=== PATIENT | female | born 1965 | race Caucasian/White ===

== ENCOUNTER → 2016-03-06 | Outpatient (CLI) | payer OTHER ==
--- NOTE | 2016-03-07 08:34 | XR ---
Left hip HISTORY: Left hip pain 2 views of the left hip No comparisons Bone mineralization, joint spaces and alignment are maintained. Question some hypertrophic change of the lateral aspect of the bony acetabulum. Correlate for femoral acetabular impingement. IMPRESSION: Possible femoral acetabular impingement, correlate. No fracture or dislocation.
== END | disposition home or self-care (01) ==
LOC: RADXRYALE 13:59
PROVIDERS: ATTEND Internal Medicine
DX: M25.552 Pain in left hip (principal)
CPT/HCPCS: 73502

== ENCOUNTER 2020-12-20 14:20 | Inpatient (IN) | payer OTHER ==
[2020-12-20] MEDS ORDERED: methylPREDNISolone SOD SUCCI 125 MG/2 ML VIAL IV STA (15:32)
[2020-12-20] MEDS ORDERED: SODIUM CHLORIDE 0.9% 1,000 ML IV STA (15:32)
[2020-12-20] MEDS ORDERED: KETOROLAC 15 MG/ML 1 ML VIAL IVP STA (15:33)
--- NOTE | 2020-12-20 15:38 | ED ---
General Adult HPI - General Source: patient, RN notes reviewed Mode of arrival: wheelchair Limitations: no limitations <Leslie Banerjee - Last Filed: 12/20/20 22:16> <Leesa Mei - Last Filed: 12/23/20 01:00 EDT> - General Chief complaint: Shortness of Breath Stated complaint: Covid+, KIM Time Seen by Provider: 12/20/20 15:11 - History of Present Illness Initial comments: 55-year-old female presents to the emergency department for evaluation of worsening shortness of breath. Patient states she was diagnosed with Covid yesterday, but symptoms began a few days ago. Patient complains of fever, dull headache, congested productive cough, and shortness of breath with activity. Patient states she took Tylenol and Motrin around 1:00 today for fever and headache. Patient states she has not been vaccinated because she "thought Covid was just a bad cold." Reports decreased appetite, a few episodes of diarrhea, and body aches as well. Patient denies chest pain, abdominal pain, hematuria, dysuria. (Leslie Banerjee) - Related Data Home Medications Medication Instructions Recorded Confirmed Citalopram Hydrobromide [CeleXA] 40 mg PO DAILY 12/20/20 12/20/20 Lisinopril-Hctz 10-12.5 mg 1 tab PO DAILY 12/20/20 12/20/20 [Zestoretic 10-12.5] Multivitamins, Thera [Multivitamin 1 tab PO DAILY 12/20/20 12/20/20 (formulary)] Allergies Allergy/AdvReac Type Severity Reaction Status Date / Time latex Allergy Itching Verified 12/20/20 16:15 Review of Systems ROS Other: All systems not noted in ROS Statement are negative. <Leslie Banerjee - Last Filed: 12/20/20 22:16> ROS Other: All systems not noted in ROS Statement are negative. <Leesa Mei - Last Filed: 12/23/20 01:00 EDT> ROS Statement: Those systems with pertinent positive or pertinent negative responses have been documented in the HPI. Past Medical History Past Medical History: No Reported History History of Any Multi-Drug Resistant Organisms: None Reported Past Surgical History: No Surgical Hx Reported Past Psychological History: No Psychological Hx Reported Smoking Status: Never smoker Past Alcohol Use History: None Reported Past Drug Use History: None Reported <Leslie Banerjee - Last Filed: 12/20/20 22:16> General Exam Limitations: no limitations (Well-developed, well-nourished female in no acute distress. Initial temperature 102.4, recheck 99.4, pulse 101, recheck 92, respirations 22, recheck 18, blood pressure 127/76, pulse 87% on room air, placed on 3 L nasal cannula improved to 92%.) General appearance: alert, in no apparent distress Eye exam: Present: normal appearance, PERRL, EOMI. Absent: scleral icterus, conjunctival injection, periorbital swelling ENT exam: Present: normal exam, normal oropharynx, mucous membranes moist Neck exam: Present: normal inspection, full ROM. Absent: tenderness, meningismus, lymphadenopathy Respiratory exam: Present: normal lung sounds bilaterally, other (Patient reports shortness of breath with activity though does not appear in any distress at rest.). Absent: respiratory distress, wheezes, rales, rhonchi, stridor Cardiovascular Exam: Present: regular rate, normal rhythm, normal heart sounds. Absent: systolic murmur, diastolic murmur, rubs, gallop, clicks GI/Abdominal exam: Present: soft, normal bowel sounds. Absent: distended, tenderness, guarding, rebound, rigid Neurological exam: Present: alert, oriented X3, CN II-XII intact Psychiatric exam: Present: normal affect, normal mood Skin exam: Present: warm, dry, intact, other (Facial flushing noted) <ErlinheribertoLeslie - Last Filed: 12/20/20 22:16> Course <ErlinjanetLeslie novoa - Last Filed: 12/20/20 22:16> Vital Signs 12/20/20 12/20/20 12/20/20 14:23 16:30 17:20 Temperature 102.4 F H Pulse Rate 101 H 85 75 Pulse Rate [ Pulse Oximetery ] Respiratory 22 18 18 Rate Blood Pressure 127/76 120/70 127/74 Blood Pressure [Left Arm] O2 Sat by Pulse 87 L 93 L 91 L Oximetry 12/20/20 12/20/20 12/20/20 20:30 22:59 23:00 Temperature Pulse Rate 88 84 Pulse Rate [ Pulse Oximetery ] Respiratory 18 20 Rate Blood Pressure 134/82 137/79 Blood Pressure [Left Arm] O2 Sat by Pulse 92 L 92 L 92 L Oximetry 12/21/20 12/21/20 12/21/20 00:00 05:00 08:59 Temperature 99.0 F Pulse Rate 79 Pulse Rate [ Pulse Oximetery ] Respiratory 22 Rate Blood Pressure 122/73 Blood Pressure [Left Arm] O2 Sat by Pulse 90 L 91 L Oximetry 12/21/20 12/21/20 12/21/20 09:01 09:04 09:29 Temperature 98.8 F Pulse Rate 93 90 Pulse Rate [ Pulse Oximetery ] Respiratory 22 20 18 Rate Blood Pressure 129/83 Blood Pressure [Left Arm] O2 Sat by Pulse 91 L 90 L Oximetry 12/21/20 12/21/20 12/21/20 14:00 15:44 16:00 Temperature Pulse Rate 91 Pulse Rate [ 105 H Pulse Oximetery ] Respiratory 20 22 Rate Blood Pressure 141/82 Blood Pressure 171/78 [Left Arm] O2 Sat by Pulse 93 L 93 L 89 L Oximetry - Reevaluation(s) Reevaluation #1: 12/20/20 17:40 Patient feeling improved and is tolerating ice chips. However, oxygen saturation remains in the low 90s on 3 L nasal cannula. (Leslie Banerjee) Medical Decision Making - Lab Data Result diagrams: 12/20/20 16:02 12/20/20 16:02 - EKG Data EKG shows normal: sinus rhythm Rate: normal - Radiology Data Radiology results: report reviewed, image reviewed <Leslie Banerjee - Last Filed: 12/20/20 22:16> - Lab Data Result diagrams: 12/21/20 07:15 12/21/20 07:15 <Leesa Mei - Last Filed: 12/23/20 01:00 EDT> - Medical Decision Making 55-year-old Covid positive female is evaluated for increasing dyspnea on exertion and hypoxia. Upon exam patient is resting comfortably in no distress. However, patient's room-air saturation is 87%, and improves to 90-94% with 3 L oxygen via nasal cannula. Patient is initially febrile with a temperature of 102.4 that responded well to antipyretics. Chest x-ray shows bilateral multifocal opacities consistent with COVID-19 infection. Inflammatory markers are elevated: LDH 1186 and CRP 22.4. Patient was given IV fluids, steroid, and albuterol inhaler. Admission discussed with patient and she is agreeable. This patient's care was reviewed with my attending Dr. Mei. Spoke with [facility] provider, DANIELA Peralta, who accepts this patient. (Leslie Banerjee) I was available for consultation in the emergency department. The history and physical exam were done by the midlevel provider. I was consulted for this patients care. I reviewed the case with the midlevel provider and based on their presentation of the patient, I agree with the assessment, medical decision making and plan of care as documented. Chart was dictated using [employer] dictation software. Attempts were made to correct any dictation errors however some typographical errors may persist. (Leesa Mei) - Lab Data Lab Results 12/20/20 12/20/20 12/20/20 Range/Units 16:02 16:02 16:02 WBC 11.4 H (3.8-10.6) k/uL RBC 4.88 (3.80-5.40) m/uL Hgb 14.9 (11.4-16.0) gm/dL Hct 42.1 (34.0-46.0) % MCV 86.4 (80.0-100.0) fL MCH 30.5 (25.0-35.0) pg MCHC 35.4 (31.0-37.0) g/dL RDW 13.0 (11.5-15.5) % Plt Count 193 (150-450) k/uL MPV 8.2 Neutrophils % (Manual) 30 % Lymphocytes % (Manual) 67 % Monocytes % (Manual) 3 % Other Cells % % Neutrophils # (Manual) 3.42 (1.3-7.7) k/uL Lymphocytes # (Manual) 7.64 H (1.0-4.8) k/uL Monocytes # (Manual) 0.34 (0-1.0) k/uL Nucleated RBCs 0 (0-0) /100 WBC Manual Slide Review Performed PT 9.7 (9.0-12.0) sec INR 0.9 (<1.2) APTT 26.0 (22.0-30.0) sec Sodium 134 L (137-145) mmol/L Potassium 4.1 (3.5-5.1) mmol/L Chloride 102 (98-107) mmol/L Carbon Dioxide 23 (22-30) mmol/L Anion Gap 9 mmol/L BUN 17 (7-17) mg/dL Creatinine 0.99 (0.52-1.04) mg/dL Est GFR (CKD-EPI)AfAm 74 (>60 ml/min/1.73 sqM) Est GFR (CKD-EPI)NonAf 64 (>60 ml/min/1.73 sqM) Glucose 127 H (74-99) mg/dL Plasma Lactic Acid Júnior (0.7-2.0) mmol/L Calcium 8.9 (8.4-10.2) mg/dL Magnesium 1.9 (1.6-2.3) mg/dL Ferritin 1544.0 H (10.0-291.0) ng/mL Total Bilirubin 0.4 (0.2-1.3) mg/dL AST 42 H (14-36) U/L ALT 32 (4-34) U/L Alkaline Phosphatase 100 (38-126) U/L Lactate Dehydrogenase 1186 H (313-618) U/L Troponin I (0.000-0.034) ng/mL C-Reactive Protein 22.4 H (<1.0) mg/dL Total Protein 6.4 (6.3-8.2) g/dL Albumin 3.6 (3.5-5.0) g/dL Procalcitonin (0.02-0.09) ng/mL Coronavirus (PCR) (Not Detectd) 12/20/20 12/20/20 12/20/20 Range/Units 16:02 16:02 16:02 WBC (3.8-10.6) k/uL RBC (3.80-5.40) m/uL Hgb (11.4-16.0) gm/dL Hct (34.0-46.0) % MCV (80.0-100.0) fL MCH (25.0-35.0) pg MCHC (31.0-37.0) g/dL RDW (11.5-15.5) % Plt Count (150-450) k/uL MPV Neutrophils % (Manual) % Lymphocytes % (Manual) % Monocytes % (Manual) % Other Cells % % Neutrophils # (Manual) (1.3-7.7) k/uL Lymphocytes # (Manual) (1.0-4.8) k/uL Monocytes # (Manual) (0-1.0) k/uL Nucleated RBCs (0-0) /100 WBC Manual Slide Review PT (9.0-12.0) sec INR (<1.2) APTT (22.0-30.0) sec Sodium (137-145) mmol/L Potassium (3.5-5.1) mmol/L Chloride (98-107) mmol/L Carbon Dioxide (22-30) mmol/L Anion Gap mmol/L BUN (7-17) mg/dL Creatinine (0.52-1.04) mg/dL Est GFR (CKD-EPI)AfAm (>60 ml/min/1.73 sqM) Est GFR (CKD-EPI)NonAf (>60 ml/min/1.73 sqM) Glucose (74-99) mg/dL Plasma Lactic Acid Júnior 0.9 (0.7-2.0) mmol/L Calcium (8.4-10.2) mg/dL Magnesium (1.6-2.3) mg/dL Ferritin (10.0-291.0) ng/mL Total Bilirubin (0.2-1.3) mg/dL AST (14-36) U/L ALT (4-34) U/L Alkaline Phosphatase (38-126) U/L Lactate Dehydrogenase (313-618) U/L Troponin I (0.000-0.034) ng/mL C-Reactive Protein (<1.0) mg/dL Total Protein (6.3-8.2) g/dL Albumin (3.5-5.0) g/dL Procalcitonin 0.62 H (0.02-0.09) ng/mL Coronavirus (PCR) Detected A (Not Detectd) 12/20/20 Range/Units 16:36 WBC (3.8-10.6) k/uL RBC (3.80-5.40) m/uL Hgb (11.4-16.0) gm/dL Hct (34.0-46.0) % MCV (80.0-100.0) fL MCH (25.0-35.0) pg MCHC (31.0-37.0) g/dL RDW (11.5-15.5) % Plt Count (150-450) k/uL MPV Neutrophils % (Manual) % Lymphocytes % (Manual) % Monocytes % (Manual) % Other Cells % % Neutrophils # (Manual) (1.3-7.7) k/uL Lymphocytes # (Manual) (1.0-4.8) k/uL Monocytes # (Manual) (0-1.0) k/uL Nucleated RBCs (0-0) /100 WBC Manual Slide Review PT (9.0-12.0) sec INR (<1.2) APTT (22.0-30.0) sec Sodium (137-145) mmol/L Potassium (3.5-5.1) mmol/L Chloride (98-107) mmol/L Carbon Dioxide (22-30) mmol/L Anion Gap mmol/L BUN (7-17) mg/dL Creatinine (0.52-1.04) mg/dL Est GFR (CKD-EPI)AfAm (>60 ml/min/1.73 sqM) Est GFR (CKD-EPI)NonAf (>60 ml/min/1.73 sqM) Glucose (74-99) mg/dL Plasma Lactic Acid Júnior (0.7-2.0) mmol/L Calcium (8.4-10.2) mg/dL Magnesium (1.6-2.3) mg/dL Ferritin (10.0-291.0) ng/mL Total Bilirubin (0.2-1.3) mg/dL AST (14-36) U/L ALT (4-34) U/L Alkaline Phosphatase (38-126) U/L Lactate Dehydrogenase (313-618) U/L Troponin I 0.026 (0.000-0.034) ng/mL C-Reactive Protein (<1.0) mg/dL Total Protein (6.3-8.2) g/dL Albumin (3.5-5.0) g/dL Procalcitonin (0.02-0.09) ng/mL Coronavirus (PCR) (Not Detectd) - EKG Data EKG Comments: EKG was obtained at 1627 and shows normal sinus rhythm. Ventricular rate 82, RI interval 158, QRS duration 68, QT/QTC 384/448. (Leslie Banerjee) - Radiology Data Chest x-ray was obtained. Report was reviewed in its entirety. Impression per Dr. Mares is bilateral multifocal opacities consistent with COVID-19 infection. (Leslie Banerjee) Disposition Decision Date: 12/20/20 Decision Time: 18:25 <Leslie Banerjee - Last Filed: 12/20/20 22:16> <Leesa Mei - Last Filed: 12/23/20 01:00 EDT> Clinical Impression: COVID-19, Hypoxia, Fever Disposition: ADMITTED IP TO THIS [facility] Condition: Serious
--- NOTE | 2020-12-20 16:16 | XR ---
EXAMINATION TYPE: XR chest 1V portable DATE OF EXAM: 12/20/2020 COMPARISON: NONE HISTORY: Shortness of breath and cough. TECHNIQUE: Single AP frontal upright view of the chest is obtained. FINDINGS: There are multifocal and confluent opacities bilaterally. The cardiac silhouette size is within normal limits. The osseous structures are intact. IMPRESSION: Bilateral multifocal opacities consistent with covid-19 infection.
[2020-12-20 16:26] LABS: HCT 42.1 % (34.0-46.0); HGB 14.9 gm/dL (11.4-16.0); MCH 30.5 pg (25.0-35.0); MCHC 35.4 g/dL (31.0-37.0); MCV 86.4 fL (80.0-100.0); Mean Platelet Volume 8.2; Platelet Count 193 k/uL (150-450); RBC 4.88 m/uL (3.80-5.40); WBC 11.4 k/uL (3.8-10.6)
[2020-12-20 16:27] LABS: INR 0.9 (<1.2); Prothrombin Time 9.7 sec (9.0-12.0)
[2020-12-20 16:34] LABS: Albumin 3.6 g/dL (3.5-5.0); Calcium 8.9 mg/dL (8.4-10.2); Magnesium 1.9 mg/dL (1.6-2.3); Potassium 4.1 mmol/L (3.5-5.1); Total Bilirubin 0.4 mg/dL (0.2-1.3); Total Protein 6.4 g/dL (6.3-8.2)
[2020-12-20 16:47] LABS: C Reactive Protein 22.4 mg/dL (<1.0)
[2020-12-20 17:43] LABS: Lymphocytes # (M) 7.64 k/uL (1.0-4.8); Monocytes # (M) 0.34 k/uL (0-1.0); Neutrophils # (M) 3.42 k/uL (1.3-7.7); Neutrophils % (M) 30 %; Nucleated Red Blood Cells 0 /100 WBC (0-0); Total Cells Counted 100
[2020-12-20] MEDS ORDERED: ACETAMINOPHEN TAB 325 MG TAB PO PRN (18:16)
[2020-12-20] MEDS ORDERED: IBUPROFEN 400 MG TAB PO PRN (18:16)
[2020-12-20] MEDS ORDERED: ONDANSETRON 4 MG/2 ML VIAL IVP PRN (18:16)
[2020-12-20] MEDS: ALBUTEROL HFA INHALER INHALATION PRN (20:22)
[2020-12-21] MEDS: SODIUM CHLORIDE 0.9% 1,000 ML IV SCH ×4 (07:12→22:40)
[2020-12-21 07:59] LABS: HCT 42.6 % (34.0-46.0); HGB 14.1 gm/dL (11.4-16.0); MCH 29.9 pg (25.0-35.0); MCHC 33.2 g/dL (31.0-37.0); MCV 90.1 fL (80.0-100.0); Platelet Count 206 k/uL (150-450); RBC 4.73 m/uL (3.80-5.40); RDW 12.7 % (11.5-15.5); WBC 14.4 k/uL (3.8-10.6)
[2020-12-21 08:16] LABS: African American GFR (CKD) >90 (>60 ml/min/1.73 sqM); Anion Gap 8 mmol/L; Blood Urea Nitrogen 21 mg/dL (7-17); Calcium 8.6 mg/dL (8.4-10.2); Carbon Dioxide 22 mmol/L (22-30); Chloride 107 mmol/L (98-107); Glucose 177 mg/dL (74-99); Non-African American GFR(CKD) 80 (>60 ml/min/1.73 sqM); Potassium 4.2 mmol/L (3.5-5.1); Sodium 137 mmol/L (137-145)
[2020-12-21] MEDS: ALBUTEROL HFA INHALER INHALATION PRN ×3 (08:59→20:36)
[2020-12-21] MEDS ORDERED: ASCORBIC ACID 500 MG TAB PO SCH (09:00)
[2020-12-21] MEDS: ASCORBIC ACID 500 MG TAB PO SCH (09:31)
[2020-12-21] MEDS: CHOLECALCIFEROL 25 MCG (1000 IU) TABLET PO SCH (09:32)
[2020-12-21] MEDS: DEXAMETHASONE SOD PHOSPHATE 10 MG/ML 1 ML VIAL IVP SCH (09:32)
[2020-12-21] MEDS: ZINC SULFATE 220 MG CAP PO SCH (09:32)
[2020-12-21] MEDS: CITALOPRAM HYDROBROMIDE 20 MG TAB PO SCH (09:32)
[2020-12-21] MEDS: ENOXAPARIN 40 MG/0.4 ML SYRINGE SQ SCH (09:33)
--- NOTE | 2020-12-21 10:26 | P.CNPUL ---
History of Present Illness Consult date: 12/21/20 Requesting physician: Janel Mead Reason for consult: dyspnea, cough, hypoxemia, pneumonia, abnormal CXR/CT Chief complaint: Shortness of breath. History of present illness: Pulmonary/critical care consult dated 12/21/2020. 55-year-old female, who presented to the emergency department on December 20, complaining of shortness of breath. The patient is apparently diagnoses having coronavirus infection, this past Thursday. She has been sick for about 9-10 days. Her complaints include shortness of breath, fever, cough, and headache. The patient has not been vaccinated against coronavirus. Currently, she not receiving any IV fluids. She is getting 5 L nasal cannula. She has a history of hypertension. White count 14.4, hemoglobin 14.1, hematocrit 42.6, platelet count 206,000. D-dimer is 0.69. PT INR and PTT are normal. Sodium 137, potassium 4.2, chlorides 107, CO2 22, anion gap 8, BUN 21, creatinine 0.83. C- reactive protein is 22.4. Pro-calcitonin level was 0.62. Chest x-rays consistent with diffuse bilateral infiltrates. Review of Systems REVIEW OF SYSTEMS: CONSTITUTIONAL: Fever. NEUROLOGIC: Headache. HEENT: [ Negative.] CARDIAC: [Negative.] PULMONARY: Shortness of breath, chest congestion, cough. GI: [Negative.] : [Negative.] RHEUMATOLOGIC: [ Negative.] IMMUNOLOGIC: [ Negative.] ENDOCRINE: [Negative. ] DERMATOLOGIC: [Negative.] Past Medical History Past Medical History: No Reported History History of Any Multi-Drug Resistant Organisms: None Reported Past Surgical History: No Surgical Hx Reported Past Psychological History: No Psychological Hx Reported Smoking Status: Never smoker Past Alcohol Use History: None Reported Past Drug Use History: None Reported Medications and Allergies Home Medications Medication Instructions Recorded Confirmed Type Citalopram Hydrobromide [CeleXA] 40 mg PO DAILY 12/20/20 12/20/20 History Lisinopril-Hctz 10-12.5 mg 1 tab PO DAILY 12/20/20 12/20/20 History [Zestoretic 10-12.5] Multivitamins, Thera [Multivitamin 1 tab PO DAILY 12/20/20 12/20/20 History (formulary)] Allergies Allergy/AdvReac Type Severity Reaction Status Date / Time latex Allergy Itching Verified 12/20/20 16:15 Physical Exam Osteopathic Statement: *. No significant issues noted on an osteopathic structural exam other than those noted in the History and Physical/Consult. Vitals: Vital Signs Temp Pulse Resp BP Pulse Ox 12/21/20 09:29 98.8 F 90 18 129/83 90 L 12/21/20 09:04 93 20 91 L 12/21/20 09:01 22 12/21/20 08:59 91 L 12/21/20 05:00 79 22 122/73 90 L 12/21/20 00:00 99.0 F 12/20/20 23:00 84 20 137/79 92 L 12/20/20 22:59 88 18 134/82 92 L 12/20/20 20:30 92 L 12/20/20 17:20 75 18 127/74 91 L 12/20/20 16:30 85 18 120/70 93 L 12/20/20 14:23 102.4 F H 101 H 22 127/76 87 L No acute distress, oriented 3. Currently on 5 L nasal cannula. No conversational dyspnea or use of accessory muscles. HEENT examination is grossly unremarkable. Neck supple. Full range of motion. No adenopathy thyromegaly or neck vein distention. Cardiovascular examination reveals regular rhythm rate. S1-S2 normal. No S3 or S4. No discernible murmur noted. Heart rate is 90 bpm. Lungs reveal coarse bilateral breath sounds. Diffuse coarse rhonchi noted. No wheezes or crackles. Breath sounds equal bilaterally. Abdomen soft bowel sounds are heard. No masses or tenderness. Extremities are intact. No cyanosis clubbing or edema. Skin is without rash or lesion. Neurologic examination is brief but nonfocal. Results - Laboratory Findings CBC and BMP: 12/21/20 07:15 12/21/20 07:15 PT/INR, D-dimer PT 9.7 sec (9.0-12.0) 12/20/20 16:02 INR 0.9 (<1.2) 12/20/20 16:02 D-Dimer 0.69 mg/L FEU (<0.60) H 12/21/20 07:15 Abnormal lab findings: Abnormal Labs 12/20/20 12/20/20 12/20/20 16:02 16:02 16:02 WBC 11.4 H Lymphocytes # (Manual) 7.64 H D-Dimer Sodium 134 L BUN Glucose 127 H AST 42 H Lactate Dehydrogenase 1186 H C-Reactive Protein 22.4 H Procalcitonin Coronavirus (PCR) Detected A 12/20/20 12/21/20 12/21/20 16:02 07:15 07:15 WBC 14.4 H Lymphocytes # (Manual) D-Dimer Sodium BUN 21 H Glucose 177 H AST Lactate Dehydrogenase C-Reactive Protein Procalcitonin 0.62 H Coronavirus (PCR) 12/21/20 07:15 WBC Lymphocytes # (Manual) D-Dimer 0.69 H Sodium BUN Glucose AST Lactate Dehydrogenase C-Reactive Protein Procalcitonin Coronavirus (PCR) - Diagnostic Findings Chest x-ray: image reviewed Assessment and Plan Assessment: Acute hypoxemic respiratory failure secondary to coronavirus associated pneum onia. History of hypertension. No prior history of coronavirus vaccination. Plan: Plan dated 12/21/2020. The patient is a candidate for an albuterol inhaler, vitamin C, vitamin D3, and zinc. In addition, the patient is a candidate for Decadron, 6 mg a day, and Lovenox 40 mg subcu daily. The patient is outside the window for REM. We will continue to follow make recommendations where appropriate. Prognosis is guarded. The patient is not vaccinated. Her only other medical history is hypertension. Hopefully, she turns around, and does not worsen in regards to her oxygenation. Time with Patient: Greater than 30
--- NOTE | 2020-12-21 11:46 | P.HPIM ---
History of Present Illness Patient is pleasant 55-year-old female came in with complaints of shortness of breath found to have COVID-19 infection. Patient to was the having symptoms of cough shortness of breath and fevers going on for about 9-10 days. Patient was diagnosed with COPD about 3 days ago. Patient was sent home and continued to get short of breath because of which patient came to Hospital patient is hypoxic on 5 L of oxygen. Patient is not vaccinated for COVID-19. Patient's d-dimer is 0.69. Patient is presently on Decadron and Lovenox. Patient does have leukocytosis. Patient the chest x-ray showing significant bilateral infiltrates. Patient had fever of 102 last night REVIEW OF SYSTEMS: CONSTITUTIONAL: As mentioned in HPI HEENT: No recent visual problems or hearing problems. Denied any sore throat. CARDIOVASCULAR: No chest pain, orthopnea, PND, no palpitations, no syncope. PULMONARY: no hemoptysis. GASTROINTESTINAL: No diarrhea, no nausea, no vomiting, no abdominal pain. NEUROLOGICAL: No headaches, no weakness, no numbness. HEMATOLOGICAL: Denies any bleeding or petechiae. GENITOURINARY: Denies any burning micturition, frequency, or urgency. MUSCULOSKELETAL/RHEUMATOLOGICAL: Denies any joint pain, swelling, or any muscle pain. ENDOCRINE: Denies any polyuria or polydipsia. The rest of the 14-point review of systems is negative. PHYSICAL EXAMINATION: GENERAL: The patient is alert and oriented x3, not in any acute distress. Well developed, well nourished. HEENT: Pupils are round and equally reacting to light. EOMI. No scleral icterus. No conjunctival pallor. Normocephalic, atraumatic. No pharyngeal erythema. No thyromegaly. CARDIOVASCULAR: S1 and S2 present. No murmurs, rubs, or gallops. PULMONARY: Chest is clear to auscultation, no wheezing or crackles. ABDOMEN: Soft, nontender, nondistended, normoactive bowel sounds. No palpable organomegaly. MUSCULOSKELETAL: No joint swelling or deformity. EXTREMITIES: No cyanosis, clubbing, or pedal edema. NEUROLOGICAL: Gross neurological examination did not reveal any focal deficits. SKIN: No rashes. Assessment and plan -Acute hypoxic respiratory failure secondary to COVID-19 pneumonia: Patient will be continued on code vitamins, Lovenox, Decadron along with Pepcid. Mildly elevated d-dimer -Hypertension -Leukocytosis secondary to sepsis from COVID-19 infection DVT prophylaxis: Lovenox Past Medical History Past Medical History: No Reported History History of Any Multi-Drug Resistant Organisms: None Reported Past Surgical History: No Surgical Hx Reported Past Psychological History: No Psychological Hx Reported Smoking Status: Never smoker Past Alcohol Use History: None Reported Past Drug Use History: None Reported Medications and Allergies Home Medications Medication Instructions Recorded Confirmed Type Citalopram Hydrobromide [CeleXA] 40 mg PO DAILY 12/20/20 12/20/20 History Lisinopril-Hctz 10-12.5 mg 1 tab PO DAILY 12/20/20 12/20/20 History [Zestoretic 10-12.5] Multivitamins, Thera [Multivitamin 1 tab PO DAILY 12/20/20 12/20/20 History (formulary)] Allergies Allergy/AdvReac Type Severity Reaction Status Date / Time latex Allergy Itching Verified 12/20/20 16:15 Physical Exam Vitals: Vital Signs Temp Pulse Resp BP Pulse Ox 12/21/20 09:29 98.8 F 90 18 129/83 90 L 12/21/20 09:04 93 20 91 L 12/21/20 09:01 22 12/21/20 08:59 91 L 12/21/20 05:00 79 22 122/73 90 L 12/21/20 00:00 99.0 F 12/20/20 23:00 84 20 137/79 92 L 12/20/20 22:59 88 18 134/82 92 L 12/20/20 20:30 92 L 12/20/20 17:20 75 18 127/74 91 L 12/20/20 16:30 85 18 120/70 93 L 12/20/20 14:23 102.4 F H 101 H 22 127/76 87 L Results CBC & Chem 7: 12/21/20 07:15 12/21/20 07:15 Labs: Abnormal Lab Results - Last 24 Hours (Table) 12/20/20 12/20/20 12/20/20 Range/Units 16:02 16:02 16:02 WBC 11.4 H (3.8-10.6) k/uL Lymphocytes # (Manual) 7.64 H (1.0-4.8) k/uL D-Dimer (<0.60) mg/L FEU Sodium 134 L (137-145) mmol/L BUN (7-17) mg/dL Glucose 127 H (74-99) mg/dL AST 42 H (14-36) U/L Lactate Dehydrogenase 1186 H (313-618) U/L C-Reactive Protein 22.4 H (<1.0) mg/dL Procalcitonin (0.02-0.09) ng/mL Coronavirus (PCR) Detected A (Not Detectd) 12/20/20 12/21/20 12/21/20 Range/Units 16:02 07:15 07:15 WBC 14.4 H (3.8-10.6) k/uL Lymphocytes # (Manual) (1.0-4.8) k/uL D-Dimer (<0.60) mg/L FEU Sodium (137-145) mmol/L BUN 21 H (7-17) mg/dL Glucose 177 H (74-99) mg/dL AST (14-36) U/L Lactate Dehydrogenase (313-618) U/L C-Reactive Protein (<1.0) mg/dL Procalcitonin 0.62 H (0.02-0.09) ng/mL Coronavirus (PCR) (Not Detectd) 12/21/20 Range/Units 07:15 WBC (3.8-10.6) k/uL Lymphocytes # (Manual) (1.0-4.8) k/uL D-Dimer 0.69 H (<0.60) mg/L FEU Sodium (137-145) mmol/L BUN (7-17) mg/dL Glucose (74-99) mg/dL AST (14-36) U/L Lactate Dehydrogenase (313-618) U/L C-Reactive Protein (<1.0) mg/dL Procalcitonin (0.02-0.09) ng/mL Coronavirus (PCR) (Not Detectd)
[2020-12-21] MEDS: FAMOTIDINE 20 MG TAB PO SCH ×2 (13:33→20:15)
[2020-12-21 15:01] LABS: Band Neutrophils % 2 %; Lymphocytes # (M) 8.78 k/uL (1.0-4.8); Monocytes # (M) 0.58 k/uL (0-1.0); Neutrophils % (M) 34 %; Nucleated Red Blood Cells 0 /100 WBC (0-0); Total Cells Counted 200
[2020-12-21] MEDS ORDERED: guaiFENesin-DM 100-10MG/5ML 10 ML CUP PO PRN (19:00)
[2020-12-21] MEDS ORDERED: guaiFENesin-DM 100-10MG/5ML 10 ML CUP PO ONE (19:15)
[2020-12-21 20:07] LABS: Glucose,Whole Blood 111 mg/dL (75-99)
[2020-12-22] MEDS ORDERED: FUROSEMIDE 10 MG/ML 4 ML VIAL ONE (05:09)
--- NOTE | 2020-12-22 05:38 | XR ---
EXAMINATION TYPE: XR chest 1V DATE OF EXAM: 12/22/2020 COMPARISON: 12/20/2020 HISTORY: Short of breath TECHNIQUE: Single view FINDINGS: There is diffuse pulmonary airspace edema. There are chest leads. Heart size difficult to e valuate. Bony thorax is intact. IMPRESSION: There is moderate pulmonary edema which is worse than last exam.
[2020-12-22 07:00] LABS: Glucose,Whole Blood 129 mg/dL (75-99)
[2020-12-22] MEDS: ALBUTEROL HFA INHALER INHALATION PRN (08:26)
[2020-12-22] MEDS: ASCORBIC ACID 500 MG TAB PO SCH (09:03)
[2020-12-22] MEDS: ENOXAPARIN 40 MG/0.4 ML SYRINGE SQ SCH (09:03)
[2020-12-22] MEDS: CHOLECALCIFEROL 25 MCG (1000 IU) TABLET PO SCH (09:03)
[2020-12-22] MEDS: CITALOPRAM HYDROBROMIDE 20 MG TAB PO SCH (09:03)
[2020-12-22] MEDS: ZINC SULFATE 220 MG CAP PO SCH (09:03)
[2020-12-22] MEDS: DEXAMETHASONE SOD PHOSPHATE 10 MG/ML 1 ML VIAL IVP SCH (09:04)
[2020-12-22] MEDS: FAMOTIDINE 20 MG TAB PO SCH (09:04)
[2020-12-22 09:11] VITALS: BP 144/74; PULSE 105; RESP 37; TEMP 99.2
[2020-12-22 09:53] LABS: Glucose,Whole Blood 142 mg/dL (75-99)
[2020-12-22 09:57] LABS: ABG Base Excess -3.5 mmol/L; ABG HCO3 23 mmol/L (21-25); ABG Oxygen Saturation 84.5 % (94-97); ABG PCO2 45 mmHg (35-45); ABG PH 7.31 (7.35-7.45); ABG TCO2 24 mmol/L (19-24); Allen Test Performed? Yes
[2020-12-22 10:00] LABS: ABG PO2 50 mmHg (83-108)
[2020-12-22] MEDS ORDERED: propofoL 100 ML IV ONE ×2 (10:12→10:13)
--- NOTE | 2020-12-22 11:04 | P.EN ---
CODE BLUE Indication: Hypoxia Code Course: Arrived on Scene to find: Initially a rapid response was called and I wrapped bedside. Patient has pneumonia. Today she has had worsening respiratory status and increasing shortness of breath despite maximal BiPAP support at 12/500%. Patient is short of breath. Chest x-ray reviewed with worsening bilateral interstitial infiltrate possible pleural effusion. Patient stated she wanted to be a full code but would not be intubated and hep minister assistant with breathing. ABG was ordered. Initial exam: General: ill appearing, maximal distress, diaphoretic Head: atraumatic, normocephalic, symmetric Cardiovascular: S1S2 tachy, no murmur, positive posterior tibial pulse bilateral, Lungs: Rochi and rale, unable to speak due to shortness of breath, + accessory muslce use, + , Abdominal: soft, nontender to palpation, no guarding, no appreciable organomegaly Ext: no gross muscle atrophy, no edema, no contractures Neuro: CN II-XI grossly intact, no focal neuro deficits Psych: Alert, oriented, appropriate affect ABG showed a PaO2 of 44. I see was contacted and patient was transported to the ICU. On arrival to the ICU anesthesia was emergently called for intubation. During intubation patient went into PEA on the monitor CODE BLUE was called at 1024. Chest compressions were started and she was given a dose of epinephrine. Initial intubation was unsuccessful as patient had copious secretions pink, frothy. Intubation was successful and ET tube was placed. It was noted that patient's abdomen began to rapidly expand., blood coming from ET tube and stool comin from recturm in copious amounts. Patient was given an additional 3 units of epinephrine and sodium bicarb but continued to be PEA and monitor. Despite aggressive resuscitation attempts patient was unable to be resuscitated. Time of 1037. A Total of [ ] minutes of critical care time was spent on the complex care of this patient.
--- NOTE | 2020-12-22 12:00 | P.PN ---
Subjective Progress Note Date: 12/22/20 Principal diagnosis: Covid pneumonia. Pulmonary/critical care consult dated 12/21/2020. 55-year-old female, who presented to the emergency department on December 20, complaining of shortness of breath. The patient is apparently diagnoses having coronavirus infection, this past Thursday. She has been sick for about 9-10 days. Her complaints include shortness of breath, fever, cough, and headache. The patient has not been vaccinated against coronavirus. Currently, she not receiving any IV fluids. She is getting 5 L nasal cannula. She has a history of hypertension. White count 14.4, hemoglobin 14.1, hematocrit 42.6, platelet count 206,000. D-dimer is 0.69. PT INR and PTT are normal. Sodium 137, potassium 4.2, chlorides 107, CO2 22, anion gap 8, BUN 21, creatinine 0.83. C- reactive protein is 22.4. Pro-calcitonin level was 0.62. Chest x-rays consistent with diffuse bilateral infiltrates. Progress note dated 12/22/2020. The patient was seen in consultation yesterday. The patient was initially in the emergency department on December 20, complaining of shortness of breath. The patient had been sick for about 9 or 10 days when we saw her in consultation on the . The patient was having shortness of breath, fever, cough, headache. The patient had not been previously vaccinated against coronavirus. This morning, the patient developed acute respiratory distress. She was transferred down to the emergency department. Anesthesia was called to intubate the patient. He was a difficult intubation took quite some time. The patient was finally intubated. Unfortunately patient had cardiopulmonary arrest and underwent cardiopulmonary resuscitation for about 13-15 minutes. The patient did not respond to multiple rounds of epinephrine and chest compressions. Given orders for the ventilator, with settings of volume assist control mode, rate 24, tidal volume 350, 100%, and PEEP of 5. I also gave orders for propofol and a paralytic. A blood gas done this morning showed a pO2 of 50, pCO2 45, pH 7.31. Chest x-ray was consistent with pulmonary edema. Objective - Vital Signs Vital signs: Vital Signs Temp 99.2 F 12/22/20 08:00 Pulse 105 H 12/22/20 08:00 Resp 37 H 12/22/20 08:00 BP 144/74 11/06/21 08:00 Pulse Ox 91 L 12/22/20 08:26 Intake & Output 12/21/20 12/22/20 12/22/20 18:59 06:59 18:59 Intake Total 118 Balance 118 Weight 82.5 kg Intake: Oral 118 Other: Voiding Method Toilet Toilet # Voids 2 1 - Exam Cardiopulmonary arrest, status post intubation.. HEENT examination is grossly unremarkable. Neck supple. Full range of motion. No adenopathy thyromegaly or neck vein distention. Cardiovascular examination reveals regular rhythm rate. HR is 80 bpm without a pulse. Lungs reveal coarse bilateral breath sounds. Abdomen distended. Extremities cool. Skin is without rash or lesion. Neurologic examination could not be assessed. - Labs CBC & Chem 7: 12/21/20 07:15 12/21/20 07:15 Labs: Abnormal Lab Results - Last 24 Hours (Table) 12/20/20 12/21/20 12/21/20 Range/Units 16:02 07:15 20:06 Lymphocytes # (Manual) 8.78 H (1.0-4.8) k/uL D-Dimer (<0.60) mg/L FEU ABG pH (7.35-7.45) ABG pO2 (83-108) mmHg ABG O2 Saturation (94-97) % POC Glucose (mg/dL) 111 H (75-99) mg/dL Ferritin 1544.0 H (10.0-291.0) ng/mL 12/22/20 12/22/20 12/22/20 Range/Units 05:19 06:28 09:45 Lymphocytes # (Manual) (1.0-4.8) k/uL D-Dimer 1.97 H (<0.60) mg/L FEU ABG pH (7.35-7.45) ABG pO2 (83-108) mmHg ABG O2 Saturation (94-97) % POC Glucose (mg/dL) 129 H 142 H (75-99) mg/dL Ferritin (10.0-291.0) ng/mL 12/22/20 Range/Units 09:55 Lymphocytes # (Manual) (1.0-4.8) k/uL D-Dimer (<0.60) mg/L FEU ABG pH 7.31 L (7.35-7.45) ABG pO2 50 L* (83-108) mmHg ABG O2 Saturation 84.5 L (94-97) % POC Glucose (mg/dL) (75-99) mg/dL Ferritin (10.0-291.0) ng/mL Assessment and Plan Assessment: S/P CPA with CPR and without ROSC. Acute hypoxemic respiratory failure secondary to coronavirus associated pneumonia. History of hypertension. No prior history of coronavirus vaccination. Plan: Plan dated 12/21/2020. The patient is a candidate for an albuterol inhaler, vitamin C, vitamin D3, and zinc. In addition, the patient is a candidate for Decadron, 6 mg a day, and Lovenox 40 mg subcu daily. The patient is outside the window for REM. We will continue to follow make recommendations where appropriate. Prognosis is guarded. The patient is not vaccinated. Her only other medical history is hypertension. Hopefully, she turns around, and does not worsen in regards to her oxygenation. Plan dated 12/22/2020. The patient was transferred down to the intensive care unit. She underwent about 13 minutes of cardiopulmonary resuscitation without significant return of spontaneous circulation. The patient had multiple rounds of epinephrine. She was intubated by the [facility] [employer]. The patient unfortunately did not respond, and a code was called by the hospitalist service. I did have a chance to speak to the tru on the phone. I asked him to come to the hospital as soon as possible. Time with Patient: Less than 30
[2020-12-22] MEDS ORDERED: CHLORHEXIDINE GLUCONATE 15 ML CUP MUCOUS MEM ONE (12:20)
== END 2020-12-22 14:50 | disposition expired | DRG 871 ==
LOC: EC 14:20 → 3SCARD 17:48 → 2SICU 12-22 10:10
PROVIDERS: ADMIT Hospitalist; ATTEND Hospitalist
PROC: 5A1935Z Respiratory Ventilation, Less than 24 Consecutive Hours (ICD-10-PCS; principal; 2020-12-20)
PROC: 0BH17EZ Insertion of Endotracheal Airway into Trachea, Via Natural or Artificial Opening (ICD-10-PCS; 2020-12-20)
PROC: 5A12012 Performance of Cardiac Output, Single, Manual (ICD-10-PCS; 2020-12-20)
DX: A41.89 Other specified sepsis (principal); U07.1 COVID-19; J12.82 Pneumonia due to coronavirus disease 2019; J96.01 Acute respiratory failure with hypoxia; J81.1 Chronic pulmonary edema; J44.0 Chronic obstructive pulmonary disease with (acute) lower respiratory infection; I46.8 Cardiac arrest due to other underlying condition; T88.4XXA Failed or difficult intubation, initial encounter; I10 Essential (primary) hypertension; Z79.899 Other long term (current) drug therapy; X58.XXXA Exposure to other specified factors, initial encounter; Z91.040 Latex allergy status
CPT/HCPCS: 36415; 36600; 71045; 80048; 80053; 82728; 82805; 83605; 83615; 83735; 84145; 84484; 85025; 85379; 85610; 85730; 86140; 87635; 92950; 93005; 94640; 94660; 94760; 96361; 96374; 96375; 99285